=== PATIENT | male | born 1985 | race Caucasian/White ===

== ENCOUNTER 2024-11-27 22:09 | Inpatient (IN) ==
[2024-11-27] MEDS: SODIUM CHLORIDE 0.9% 1,000 ML IV STA (22:27)
--- NOTE | 2024-11-27 22:31 | Emergency Department Note ---
Impression & Plan Abdominal pain, Acute appendicitis ED Provider Note CHIEF COMPLAINT: RLQ abdominal pain HISTORY OF PRESENT ILLNESS: This 39 year old male patient presents to the emergency department via private vehicle for evaluation of right lower quadrant abdominal pain. This came on suddenly about 3-1/2 hours ago. The patient states that he has never had pain like this before. He was at work when the pain started. His appetite has been normal. No associated nausea or vomiting. No diarrhea or constipation. Last bowel movement was yesterday and was normal. No fever or chills. No dysuria, urinary frequency, urinary hesitancy. The pain does not radiate into the testicles or groin. Patient did not take any medication for his pain. History provided by: Patient REVIEW OF SYSTEMS: A 10 system review of systems was performed with positives and pertinent negatives listed in the history of present illness. All other systems were reviewed and are negative. ALLERGIES: NKDA PHYSICAL EXAM: VITALS: Vitals are noted on the nurse's note and reviewed by myself. GENERAL: This is a 39-year-old male, in no acute distress, nondiaphoretic, well- developed well-nourished. SKIN: The skin was without rashes, erythema, edema, or bruising. There is no tenting of the skin. Capillary refill less than 2 seconds. HEAD: Normocephalic atraumatic. EYES: Conjunctivae without injection, sclerae without icterus. MOUTH: Mucous membranes moist. NECK: Supple without nuchal rigidity. No JVD. HEART: Regular rate and rhythm without murmurs gallops or rubs. LUNGS: Clear to auscultation bilaterally without wheezes, rales or rhonchi. No retractions or accessory muscle use. ABDOMEN: Positive bowel sounds x 4. Right lower quadrant tenderness palpation. Abdomen is otherwise soft, without masses or organomegaly. Patrick sign negative. No guarding or rebound tenderness. Right CVA tenderness. MUSCULOSKELETAL: No muscle atrophy, erythema, or edema noted. Full range of motion without joint tenderness in all extremities. No tenderness to palpation. Normal gait. Strength 5/5 throughout. NEURO: Patient was alert and oriented to person place and time. Normal sensation to light and sharp touch. Deep tendon reflexes 2+ throughout. No focal neurological deficits. 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 The monitor showed a normal sinus rhythm at a ventricular rate of 93 bpm, per my interpretation. Imaging as interpreted by myself and the radiologist revealed early acute appendicitis, with radiologist interpretation as above. I agree with the radiologist's findings as based upon my independent interpretation. EMERGENCY DEPARTMENT COURSE: The patient was evaluated as above. Pt. presents to the ED today for RLQ pain. Pain came on suddenly about 3 hours ago. IV access obtained, labs drawn. Pt. hydrated with IV fluids, medicated with IV Toradol. Labs reviewed. Per my interpretations, no leukocytosis, anemia, thrombocytopenia. Renal, hepatic function and electrolytes without significant abnormality. Lipase normal. UA without evidence of blood or infection. CT imaging completed and concerning for early acute appendicitis, per my interpretation. Radiologist interpretation consistent with this. I discussed the case with Pepito Unger PA-C with general surgery. He did evaluate the patient. Please see general surgery dictation regarding ongoing management and final disposition of this patient. Case was discussed with the attending physician. I attest that I have personally reviewed the patient medication list. I attest that I have reviewed the patient's blood pressure and it was found to be normal GCS: 15 In the evaluation and treatment of this patient the following differential diagnoses were entertained: appendicitis, diverticulitis, obstruction, inflammatory bowel disease, renal colic, PUD, biliary pathology, pancreatitis, mesenteric ischemia, aortic pathology, infections, genitourinary, UTI, perforated viscus, as well as others were entertained. The chart was completed utilizing [employer] Speech voice recognition software. Grammatical errors, random word insertions, pronoun errors, and incomplete sentences are an occasional consequence of this system due to software limitations, ambient noise, and hardware issues. Any formal questions or concerns about the content, text, or information contained within the body of this dictation should be directly addressed to the provider for clarification. Past Med/Surg History Problem List (Updated 11/28/24 @ 02:43 by Lilibeth Rangel PA-C) Acute appendicitis (Acute) Abdominal pain (Acute) Appendicitis Medical History No chronic diseases present Surgical History History of ankle surgery L ankle (age 17) Family History Father Hypertension Mother No problems noted. 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 Required: No Beliefs That Will Affect Care: None marital status: Single Current Living Situation: Family Current Living Situation Comment: LIVES W/MOM current occupational status: employed current occupation: [employer] How many Children do You have: 0 Feels Safe at Home: Yes Childhood Exposure to Second-Hand Smoke: No Diet: regular caffeine: No during the past year weight has: remained stable Physical Activity Frequency: 5-6 Times per Week Physical Activity Frequency Comment: AT WORK Seatbelt Use: sometimes Sunscreen Use: No Assistive Devices: Glasses Allergies Allergies Allergy/AdvReac Type Severity Reaction Status Date / Time No Known Allergies Allergy Unverified 11/27/24 23:17 Home Meds Home Medications Medication Instructions Recorded Confirmed No Known Home Medications 11/27/24 11/27/24 Results & Data (ED) Vital Signs Vital Signs - 24 hr 11/27/24 22:17 11/27/24 22:27 11/27/24 23:03 Temperature 36.9 C Temperature Source Temporal Artery Scan Pulse Rate 93 H 77 Pulse Rate [Right Finger] 59 L Pulse Rhythm [Right Finger] Regular Respiratory Rate 18 16 Respiratory Effort / Characteristics Non-Labored Spontaneous Respiratory Depth Normal Normal Respiratory Pattern Regular Blood Pressure 116/72 Blood Pressure [Right Arm] 121/80 Blood Pressure Mean 86 Blood Pressure Mean [Right Arm] 93 Pulse Oximetry 99 100 Oxygen Delivery Method Room Air Room Air Sepsis Recent Fever Within 48 Hours No Sepsis New/Unexplained Change in Mental Status N/A Sepsis Action Taken by Nursing No Action Required 11/27/24 23:05 Temperature Temperature Source Pulse Rate 68 Pulse Rate [Right Finger] Pulse Rhythm [Right Finger] Respiratory Rate 16 Respiratory Effort / Characteristics Respiratory Depth Respiratory Pattern Blood Pressure Blood Pressure [Right Arm] Blood Pressure Mean Blood Pressure Mean [Right Arm] Pulse Oximetry 100 Oxygen Delivery Method Room Air Sepsis Recent Fever Within 48 Hours Sepsis New/Unexplained Change in Mental Status Sepsis Action Taken by Nursing Laboratory Data 11/27/24 22:29 11/27/24 22:29 Lab Results 11/27/24 11/28/24 Range/Units 22:29 00:28 WBC 10.58 (4.8-10.8) K/ul RBC 5.23 (4.70-6.10) M/uL Hgb 16.2 (14.0-18.0) g/dl Hct 46.9 (42.0-52.0) % MCV 89.7 (80.0-100.0) fL MCH 31.0 (25.0-34.0) pg MCHC 34.5 (32.0-36.0) g/dL RDW Std Deviation 42.8 (36.4-46.3) fL RDW Coeff of Appi 13.1 (11.5-14.5) % Plt Count 229 (130-400) K/uL MPV 10.9 (9.4-12.4) fL Immature Gran % (Auto) 0.4 % Neut % (Auto) 79.6 % Lymph % (Auto) 12.0 % Mckean % (Auto) 6.9 % Eos % (Auto) 0.8 % Baso % (Auto) 0.3 % Neut # (Auto) 8.43 H (1.40-6.50) K/uL Lymph # (Auto) 1.27 (1.20-3.40) K/uL Mckean # (Auto) 0.73 H (0.11-0.59) K/uL Eos # (Auto) 0.08 (0.00-0.50) K/uL Baso # (Auto) 0.03 (0.00-0.20) K/uL Immature Gran # (Auto) 0.04 (0.01-0.20) K/uL PT 10.4 (9.0-12.0) Seconds INR 1.0 (0.9-1.1) APTT 27 (21-31) Seconds PTT Ratio 1.0 Sodium 140 (136-145) mmol/L Potassium 4.3 (3.5-5.1) mmol/L Chloride 106 (98-107) mmol/L Carbon Dioxide 28 (21-32) mmol/L Anion Gap 6 (3-11) BUN 12 (6-23) mg/dl Creatinine 1.02 (0.6-1.4) mg/dl Est Cr Clr Drug Dosing 90.9 ml/min eGFR 95.88 BUN/Creatinine Ratio 11.8 (10-20) Glucose 100 H (70-99(Fasting)) mg/dl Calcium 9.3 (8.6-10.3) mg/dl Total Bilirubin 0.5 (0.2-1.0) mg/dl AST 25 (13-39) U/L ALT 23 (7-52) U/L Alkaline Phosphatase 90 (34-104) U/L Total Protein 7.5 (6.0-8.3) gm/dl Albumin 4.9 (3.4-5.0) gm/dl Globulin 2.6 (2.5-4.0) gm/dl Albumin/Globulin Ratio 1.9 (0.9-2) Lipase 23 (11-82) U/L Urine Color Yellow Urine Appearance Clear (Clear) Urine pH 5.5 (4.5-7.5) Ur Specific Premium 1.022 (1.000-1.030) Urine Protein Negative (Negative) Urine Glucose (UA) Negative (Negative) Urine Ketones 1+ H (Negative) Urine Blood Negative (Negative) Urine Nitrite Negative (Negative) Urine Bilirubin Negative (Negative) Urine Urobilinogen Negative (Negative) Ur Leukocyte Esterase Negative (Negative) Urine Comment Administered Medications Sodium Chloride (Nss) 1,000 mls @ 125 mls/hr IV .Q8H SHAHEEN Stop: 12/01/24 00:59 Last Admin: 11/28/24 01:16 Dose: 125 mls/hr Documented By: HAMLET Discontinued Medications Sodium Chloride (Nss) 1,000 mls @ 999 mls/hr IV .Q1H1M STA Stop: 11/27/24 23:25 Last Infusion: 11/27/24 23:29 Dose: Infused Documented By: Admin: 11/27/24 22:27 Dose: 999 mls/hr Documented By: JR Piperacillin Sod/Tazobactam Sod (Zosyn) 4.5 gm in 100 mls @ 200 mls/hr IV NOW ONE; Protocol Stop: 11/28/24 01:21 Last Infusion: 11/28/24 02:26 Dose: Infused Documented By: Admin: 11/28/24 01:19 Dose: 200 mls/hr Documented By: NEK Ketorolac Tromethamine (Ketorolac Tromethamine 15 Mg/Ml Vial) 30 mg IV NOW STA Stop: 11/27/24 22:26 Last Admin: 11/27/24 22:59 Dose: 30 mg Documented By: RENETTA Ondansetron HCl (Ondansetron Inj 2 Mg/Ml 2 Ml Vial) 4 mg IV NOW STA Stop: 11/27/24 22:26 Last Admin: 11/27/24 22:59 Dose: 4 mg Documented By: RENETTA Imaging Data Radiologist's Impression: Abdomen/Pelvis CT 11/27/24 22:25 CR Exam(s): CT ABDOMEN + PELVIS Without Contrast EXAM: CT Abdomen and Pelvis Without Intravenous Contrast CLINICAL HISTORY: Reason for exam: right flank, sudden RLQ pain. TECHNIQUE: Axial computed tomography images of the abdomen and pelvis without intravenous contrast. CTDI is 16.44 mGy and DLP is 908.56 mGy-cm. Automated exposure control was utilized for the study. A dose lowering technique was utilized adhering to the principles of ALARA. COMPARISON: No relevant prior studies available. FINDINGS: The exam is limited due to lack of contrast. Lung bases: No consolidation. ABDOMEN: Liver: The liver is enlarged. Gallbladder and bile ducts: No calcified stones. No ductal dilation. Pancreas: The visualized portions of the pancreas, on this noncontrast study, are grossly unremarkable.. Spleen: No splenomegaly. Adrenals: No mass. Kidneys and ureters: No obstructing stones. No hydronephrosis. Stomach and bowel: There is some air and fluid within the stomach. There is air and stool noted in the colon.. PELVIS: Appendix: The appendix is mildly distended at 10 mm. There are some mild surrounding inflammatory changes.. Bladder: No calculi are noted within the bladder.. Reproductive: Unremarkable as visualized. ABDOMEN and PELVIS: Intraperitoneal space: No free air. No significant fluid collection. Bones/joints: No acute fracture. No dislocation. Soft tissues: Unremarkable. Vasculature: No abdominal aortic aneurysm. Lymph nodes: No enlarged lymph nodes. IMPRESSION: The appendix is mildly distended with some mild surrounding inflammatory changes. This may represent early or mild appendicitis.. Communications: Call Doctor Appendicitis Electronically signed by: Sebastián Ewing MD 11/28/24 00:26 AM Discharge Plan Visit Data Chief Complaint: Flank Pain Stated Complaint: LOWER RT FLANK PAIN ED Provider: Chris Cole ED Midlevel Provider: Lilibeth Rangel Discharge Problem: Abdominal pain, Acute appendicitis Patient Disposition: Admitted As Inpatient Condition: Good Discharge Instructions Interventions: ED Discharge Assessment Last Done: 11/28/24 01:52
[2024-11-27 22:54] LABS: Hematocrit (blood only) 46.9 % (42.0-52.0); Hemoglobin 16.2 g/dl (14.0-18.0); Immature Granulocytes # (auto) 0.04 K/uL (0.01-0.20); Immature Granulocytes % (auto) 0.4 %; Mean Corpuscular Hemoglobin 31.0 pg (25.0-34.0); Mean Corpuscular Volume 89.7 fL (80.0-100.0); Platelet Count 229 K/uL (130-400); RDW Standard Deviation 42.8 fL (36.4-46.3); Red Blood Count 5.23 M/uL (4.70-6.10); White Blood Count 10.58 K/ul (4.8-10.8)
[2024-11-27] MEDS: KETOROLAC TROMETHAMINE 15 MG/ML VIAL IV STA (22:59)
[2024-11-27] MEDS: ONDANSETRON INJ 2 MG/ML 2 ML VIAL IV STA (22:59)
[2024-11-27 23:11] LABS: Alanine Aminotransferase 23.0 U/L (7-52); Albumin Globulin Ratio 1.9 (0.9-2); Alkaline Phosphatase 90.0 U/L (34-104); Anion Gap 6.0 (3-11); Bilirubin,Total 0.5 mg/dl (0.2-1.0); Blood Urea Nitrogen 12.0 mg/dl (6-23); Calcium 9.3 mg/dl (8.6-10.3); Carbon Dioxide 28.0 mmol/L (21-32); Chloride 106.0 mmol/L (98-107); Creatinine Clr Calc Pharmacy 90.9 ml/min; Globulin 2.6 gm/dl (2.5-4.0); Glucose 100.0 mg/dl (70-99(Fasting)); Lipase 23.0 U/L (11-82); Potassium 4.3 mmol/L (3.5-5.1); Sodium 140.0 mmol/L (136-145); Total Protein 7.5 gm/dl (6.0-8.3)
--- NOTE | 2024-11-28 00:27 | CT Scan Report ---
Exam(s): CT ABDOMEN + PELVIS Without Contrast EXAM: CT Abdomen and Pelvis Without Intravenous Contrast CLINICAL HISTORY: Reason for exam: right flank, sudden RLQ pain. TECHNIQUE: Axial computed tomography images of the abdomen and pelvis without intravenous contrast. CTDI is 16.44 mGy and DLP is 908.56 mGy-cm. Automated exposure control was utilized for the study. A dose lowering technique was utilized adhering to the principles of ALARA. COMPARISON: No relevant prior studies available. FINDINGS: The exam is limited due to lack of contrast. Lung bases: No consolidation. ABDOMEN: Liver: The liver is enlarged. Gallbladder and bile ducts: No calcified stones. No ductal dilation. Pancreas: The visualized portions of the pancreas, on this noncontrast study, are grossly unremarkable.. Spleen: No splenomegaly. Adrenals: No mass. Kidneys and ureters: No obstructing stones. No hydronephrosis. Stomach and bowel: There is some air and fluid within the stomach. There is air and stool noted in the colon.. PELVIS: Appendix: The appendix is mildly distended at 10 mm. There are some mild surrounding inflammatory changes.. Bladder: No calculi are noted within the bladder.. Reproductive: Unremarkable as visualized. ABDOMEN and PELVIS: Intraperitoneal space: No free air. No significant fluid collection. Bones/joints: No acute fracture. No dislocation. Soft tissues: Unremarkable. Vasculature: No abdominal aortic aneurysm. Lymph nodes: No enlarged lymph nodes. IMPRESSION: The appendix is mildly distended with some mild surrounding inflammatory changes. This may represent early or mild appendicitis.. Communications: Call Doctor Appendicitis Electronically signed by: Sebastián Ewing MD 11/28/24 00:26 AM
[2024-11-28 00:40] LABS: Appearance Urine Clear (Clear); Glucose Urine UA Negative (Negative)
--- NOTE | 2024-11-28 00:47 | History & Physical Report ---
Date of Service November 28, 2024 Assessment & Plan (1) Appendicitis: Plan: Due to the patient's findings on CT scan as well as his clinical presentation he will be admitted to the surgical service proceeding as follows: N.p.o. status will be implemented Will initiate antibiotics in the form of Zosyn Will hydrate with IV fluids Analgesics will be provided Antiemetics will be provided Will add coagulation studies to his current labs Will tentatively have the patient undergo an appendectomy with Dr. Boykin about any tissue for general surgery the morning of 11/28/2024. Will use SCDs for DVT prevention, no chemical needs due to planned surgery Additional recommendations to be forthcoming based on operative findings and his postoperative recovery thereafter History of Present Illness Chief Complaint: Abdominal pain Primary Care Provider: Karen Aleman DO This is a 39-year-old male that presented to the emergency department secondary to abdominal pain. 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 He says that the pain does not radiate anywhere and he does not report any other modifying factors. He has not had any fevers, shakes, or chills. He denies any nausea or vomiting. He denies any history of prior abdominal surgeries. Since arrival to hospital the patient has had labs and imaging which I independent reviewed. He did have a CT scan of the abdomen and pelvis that sh owed no free intraperitoneal fluid or any free intraperitoneal air. The appendix was noted to be mildly distended 10 mm with some mild surrounding inflammatory changes and the interpreting radiologist felt that this potentially represented an early/mild appendicitis. Labs included a CBC were white blood cell count, hemoglobin, hematocrit, and platelet count were normal. Chemistry profile showed sodium and potassium as well as the BUN and creatinine were normal. There is no elevation of LFTs or lipase and a urinalysis was not taken of infection. At the time of my interview he was resting comfortably in bed he was in no distress. Concerning allergies the patient says he has no medicine allergies Concerning medications he denies taking any medications Concerning past medical history he denies any medical problems Concerning past surgical history he has had surgery on his ankle but denies any other prior surgeries Concerns social history he does vape. Concerning family history he notes his father suffered from hypertension Allergies Allergy/AdvReac Type Severity Reaction Status Date / Time No Known Allergies Allergy Verified 11/28/24 08:36 Home Medications Medication Instructions Recorded Confirmed Type No Known Home Medications 11/27/24 11/27/24 History Past Med/Surg History Problem List Acute appendicitis (Acute) Abdominal pain (Acute) Appendicitis Medical History No chronic diseases present Surgical History History of ankle surgery L ankle (age 17) Family History Father Hypertension Mother No problems noted. Denies family history of Ovarian cancer Prostate cancer Myocardial infarction Breast cancer Colorectal cancer Social History Smoking Status: Current every day smoker Tobacco Type: E-cigarettes / Vaping Age Started Using Tobacco: 14; Age Quit Using Tobacco: 32; packs per day: 0.5; Second Hand Exposure: No; Do You Dip or Chew Tobacco: No; Tobacco Cessation Education Requested by Patient: No Hx Alcohol Use: Yes Alcohol type: beer Alcohol Intake Frequency: 2-3 x/Week Hx Substance Use: No Preferred Language: [place] Communication Ability: Effective Visual Impairment: Partially Limited Hearing Ability: Normal 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 current occupational status: employed current occupation: [employer] How many Children do You have: 0 Other Information That Helps Us Care for You: No Feels Safe at Home: Yes Safety Concerns: Feels Safe At This Time Childhood Exposure to Second-Hand Smoke: No Diet: regular caffeine: No during the past year weight has: remained stable Physical Activity Frequency: 5-6 Times per Week Physical Activity Frequency Comment: AT WORK Seatbelt Use: sometimes Sunscreen Use: No Assistive Devices: None Review of Systems Review of Systems: All systems reviewed & are unremarkable except as noted in HPI & below Physical Exam Constitutional: WD/WN, vitals as above Eyes: no conjunctival abnormality ENMT: Ears: no hearing impairment and no external ear abnormality Neck: trachea midline Respiratory: normal respiratory effort; no respiratory distress and no labored breathing Cardiovascular: Rate/Rhythm: regular rate and regular rhythm Gastrointestinal (Abdomen): Abdomen is soft without rigidity or distention. There is no rebound tenderness, guarding, or signs of peritonitis. Patient did have pain with palpation in the right lower quadrant over McBurney's point Musculoskeletal: No calf tenderness Skin: no rashes Neurologic: moves all extremities Psychiatric: A+Ox3, euthymic affect Results & Data Results & Data Vital Signs (Past 12 Hours) Vital Signs Temp Pulse Pulse Resp BP BP Pulse Ox 11/27/24 23:05 68 16 100 11/27/24 23:03 59 L 16 121/80 100 11/27/24 22:27 77 11/27/24 22:17 36.9 C 93 H 18 116/72 99 O2 Del Method 11/27/24 23:05 Room Air 11/27/24 23:03 Room Air 11/27/24 22:27 11/27/24 22:17 Room Air Supervising Physician Co-Signing Physician Notes Patient seen and examined, labs and imaging reviewed, agree with above. Presented with abdominal pain overnight. On exam he is afebrile with stable vitals, abdomen is soft, tender to palpation in the right lower quadrant over McBurney's point with localized guarding. WBC normal. CT scan personally reviewed and agree with the assessment of an early acute appendicitis without evidence of perforation. Plan for laparoscopic appendectomy Risks of procedure were discussed to include but not limited to bleeding, infection, normal appendix, conversion open, damage surrounding structures, need for future more extensive surgery, abscess, and the risk of anesthesia Likely discharge this afternoon Wound care instructions activity restrictions reviewed Return precautions given Follow-up in general surgery clinic in 2 weeks, call with questions or concerns PG Care Time/CCT Total # of Minutes Spent Total Time Spent with Patient: Total time spent is greater than 50% in coordination of care (as documented) at patient's floor/unit and/or counseling patient: Coding Level of Care Code 96425 INT INP/OBS CARE 3/75MIN Diagnoses Appendicitis K37
[2024-11-28] MEDS ORDERED: MoRPHine SULFATE 4 MG/ML 1 ML CARP\\VIAL IV PRN (00:52)
[2024-11-28] MEDS ORDERED: ONDANSETRON INJ 2 MG/ML 2 ML VIAL IV PRN ×2 (00:52→09:05)
[2024-11-28] MEDS ORDERED: ACETAMINOPHEN 1,000 MG/100 ML VIAL IV PRN (00:52)
[2024-11-28] MEDS: SODIUM CHLORIDE 0.9% 1,000 ML IV SCH (01:16)
[2024-11-28] MEDS: PIPERACILLIN/TAZOBACTAM 4.5 GM/100 ML BAG IV ONE (01:19)
[2024-11-28 01:39] LABS: INR 1.0 (0.9-1.1); Partial Thromboplastin Time 27 Seconds (21-31); Prothrombin Time 10.4 Seconds (9.0-12.0)
[2024-11-28] MEDS: PIPERACILLIN/TAZOBACTAM 4.5 GM/100 ML BAG IV SCH (05:43)
[2024-11-28] MEDS: BUPIVACAINE 0.5 % 5 MG/1 ML MPF 30ML VIAL ONE (08:03)
[2024-11-28] MEDS ORDERED: DEXAMETHASONE SOD INJ 4 MG/ML VIAL ONE (08:19)
[2024-11-28] MEDS ORDERED: ONDANSETRON INJ 2 MG/ML 2 ML VIAL ONE (08:19)
[2024-11-28] MEDS ORDERED: LIDOCAINE 2% 2 ML VIAL/AMP(20MG/ML) INFIL ONE (08:19)
[2024-11-28] MEDS ORDERED: MIDAZOLAM HCL 1 MG/ML 2ML VIAL ONE (08:19)
[2024-11-28] MEDS ORDERED: ROCURONIUM BROMIDE 10 MG/ML 5 ML VIAL IV ONE (08:19)
[2024-11-28] MEDS ORDERED: PROPOFOL IV EMULSION 10 MG/ML 20 ML VIAL IV ONE (08:19)
--- NOTE | 2024-11-28 08:47 | Anesthesiology Consultation ---
Date of Service November 28, 2024 Assessment & Plan Chart Review Chart Review: Acceptable Risk for Surgery and Patient NOT seen in Pre Admission Testing Consults Requested none ASA ASA2 Proposed Anesthesia Anesthesia Type: General Risk / Benefits Reviewed With: PT / POA / Parent / Guardian, Accepts Plan and Informed Consent Obtained History Surgery Operation Date: 11/28/24 08:55 Proposed Procedures p Laparoscopic Appendectomy - Facundo Boykin, DO, FACS Height/Weight Height: 5 ft 7 in Weight: 85.304 kg Allergies Allergy/AdvReac Type Severity Reaction Status Date / Time No Known Allergies Allergy Verified 11/28/24 08:36 Medications Home Medications Medication Instructions Recorded Confirmed Last Taken No Known Home Medications 11/27/24 11/27/24 Unknown Active Medications Generic Name Dose Route Start Last Admin Trade Name Freq PRN Reason Stop Dose Admin Sodium Chloride 1,000 mls @ 125 mls/hr 11/28/24 01:00 11/28/24 01:16 Nss IV 12/01/24 00:59 125 mls/hr .Q8H SHAHEEN Administration Piperacillin Sod/Tazobactam Sod 4.5 gm in 100 mls @ 25 mls/hr 11/28/24 06:00 11/28/24 05:43 Zosyn IV 12/08/24 01:51 25 mls/hr Q8H SHAHEEN Administration Protocol NPO Date Last Intake of Fluids: 11/27/24 Time Last Intake of Fluids: 23:00 Date Last Intake of Solids: 11/26/24 Time Last Intake of Solids: 03:00 Past Medical History Medical History No chronic diseases present Gerd Vapes HLD Exercise / Class Metabolic Activity II 4-5 Yardwork/Stairs/Walk up hill Past Family History Family History Father Hypertension Mother No problems noted. Denies family history of Ovarian cancer Prostate cancer Myocardial infarction Breast cancer Colorectal cancer Past Surgical History Surgical History History of ankle surgery L ankle (age 17) Past Anesthesia History No Hx of Anesthesia Complications and No Family Hx of Anesthesia Complications History of PONV No Hx of PONV and No Hx of Motion Sickness Social History Smoking Status: Current every day smoker Do You Dip or Chew Tobacco: No Hx Alcohol Use: Yes Alcohol type: beer alcohol intake frequency: 0-2 drinks per day Hx Substance Use: No substance use type: does not use Physical Exam Vital Signs Last Vital Signs Temp 36.6 C 11/28/24 08:27 Pulse 69 11/28/24 08:27 Resp 20 11/28/24 08:27 BP 134/82 11/28/24 08:27 Pulse Ox 97 11/28/24 08:27 O2 Del Method Room Air 11/28/24 08:27 Constitutional + obese; no acute distress ENMT Mouth: + dentition abnormality, + dental caries, + poor dentition, + chipped teeth and + loose teeth Thyromental Distance: > or= 3.5 Finger Breadths Mallampati Class: II Neck normal visual inspection, trachea midline and + facial hair; neck extension not limited Respiratory normal respiratory effort Auscultation: lungs clear to auscultation bilaterally Cardiovascular Rate/Rhythm: regular rate and regular rhythm Heart Sounds: no murmur Vessels: no carotid bruit Musculoskeletal Spine: normal cervical ROM and no pain with cervical ROM Extremities: extremities normal to inspection; full ROM of extremities Neurologic moves all extremities Motor/Sensory: no sensory deficit Psychiatric Orientation: alert and oriented x 3 Testing Laboratory Results 11/27/24 22:29 11/27/24 22:29 PT 10.4 Seconds (9.0-12.0) 11/27/24 22:29 INR 1.0 (0.9-1.1) 11/27/24 22:29 APTT 27 Seconds (21-31) 11/27/24 22:29 Urine Color Yellow 11/28/24 00:28 Urine Appearance Clear (Clear) 11/28/24 00:28 Urine pH 5.5 (4.5-7.5) 11/28/24 00:28 Ur Specific [place] 1.022 (1.000-1.030) 11/28/24 00:28 Urine Protein Negative (Negative) 11/28/24 00:28 Urine Glucose (UA) Negative (Negative) 11/28/24 00:28 Urine Ketones 1+ (Negative) H 11/28/24 00:28 Urine Nitrite Negative (Negative) 11/28/24 00:28 Ur Leukocyte Esterase Negative (Negative) 11/28/24 00:28
[2024-11-28] MEDS ORDERED: NALOXONE HCL 0.4 MG/1 ML VIAL/CARP IV PRN (09:05)
[2024-11-28] MEDS ORDERED: ATROPINE SULFATE 0.1 MG/ML 10ML SYR IV PRN (09:05)
[2024-11-28] MEDS ORDERED: FLUMAZENIL 0.1 MG/1 ML 10 ML VIAL IV PRN (09:05)
[2024-11-28] MEDS ORDERED: PROMETHAZINE HCL 6.25 MG in SODIUM CHLORIDE 0.9% 50 ML IV PRN (09:05)
[2024-11-28] MEDS ORDERED: HYDROmorphone INJ 1 MG/ML SYRINGE IV PRN (09:05)
--- NOTE | 2024-11-28 09:48 | History & Physical Bridge Note ---
Date of Service November 28, 2024 History & Physical Bridge Note I have examined the patient, reviewed the History & Physical and in the interval since the performance of the History & Physical I have noted the following changes of clinical significance: no changes noted
[2024-11-28] MEDS ORDERED: SUGAMMADEX SODIUM 200 MG/2 ML VIAL IV ONE (10:37)
--- NOTE | 2024-11-28 10:49 | Operative Report ---
PG Post Operative Report Pre & Post Diagnosis Operation Date: 11/28/24 08:55 Pre-Op Diagnosis: Appendicitis Post-Op Diagnosis: Appendicitis I identified the patient and participated in the time-out.: Yes Procedure Operation Date: 11/28/24 08:55 Actual Procedures p Laparoscopic Appendectomy(Not Applicable) - Facundo Boykin DO, MALISSA Surgeon Facundo Boykin DO, MALISSA Capacity Planning Analyst Solo Duran Estimated Blood Loss 5 Findings Consistent with Post-Op Diagnosis Acute, nonperforated appendicitis Specimens Appendix Anesthesia Type General Complications none Disposition Accompanied Patient To Recovery: No Disposition: Recovery Room Indications 39-year-old male presented with signs symptoms of acute appendicitis confirmed by CT scan. Plan for laparoscopic appendectomy. The risks of the procedure were discussed, all questions were answered, and the patient agreed to proceed with surgery as planned. Description of Procedure The patient was properly identified, consented, and taken to the operating room where he was placed in the supine position. General endotracheal anesthesia was induced. SCDs and a safety belt were placed. Preoperative antibiotics were administered. A Cooper catheter was not placed. The patient's abdomen was prepped and draped in the standard sterile fashion. Surgical timeout was performed and all parties were in agreement that this was the correct patient and procedure to be performed and we continued as planned. An incision was made superior into the left of the umbilicus. The Veress needle was inserted and saline drop test confirmed entry into the abdomen. The abdomen is insufflated with carbon dioxide with the patient tolerated without incident. The abdomen was then entered using a 5 mm 30 degree scope and a 5 mm port utilizing the Optiview technique. The laparoscope was inserted and no damage from initial trocar placement was noted, no gross abnormalities were noted within the 4 quadrants the abdomen. 12 mm port was placed in the left lower quadrant with care not to damage the epigastric vessels, and a 5 mm port was placed in the suprapubic midline with care not to damage the bladder. The patient was placed in Trendelenburg position and rotated towards the left. The small bowel was swept away from the right lower quadrant. The cecum was grasped with an atraumatic grasper exposing the appendix. The appendix was moderately inflamed and there was no evidence of perforation. There was no fluid in the pelvis. A window was created between the base of the appendix and the mesoappendix. A evans loaded endoscopic stapler was then used to divide the appendix at its base. A evans load was then used to divide the mesoappendix. Hemostasis was good. The appendix was placed in an Endo Catch bag and removed through the umbilical port site. The right lower quadrant and pelvis was irrigated and hemostasis was found to be good. 5 mm trochars were removed under direct visualization and the abdomen was allowed to collapse. The 12 mm port port site fascia was closed with [id number] 0 Vicryl suture utilizing the Bam-Latrice device. The wound was irrigated, and the skin of all ports was closed with 4-0 Monocryl subcuticular sutures. Dermabond was placed over the wounds. The patient was extubated in the operating room and taken to the PACU where he recovered without apparent incident. All sponge, instrument and needle counts were correct at the conclusion of the procedure. The patient tolerated the procedure well. The physicians contact center assistant was present and scrubbed for the entire the case. She was critical in positioning the patient, prepping and draping, retraction exposure, driving the laparoscope, removal of the appendix, closure the inci sions, placement of the dressings. I attest to the content of the Intraoperative Record and any orders documented therein. Any exceptions are noted below.
[2024-11-28] MEDS ORDERED: KETOROLAC 30 MG/ML VIAL ONE (10:52)
[2024-11-28 11:13] VITALS: TEMP 97.5
[2024-11-28 11:26] VITALS: RESP 16
[2024-11-28 11:36] VITALS: BP 120/81; PULSE 68; O2SAT 98
--- NOTE | 2024-11-28 12:09 | Anesthesiology Progress Note ---
Date of Service November 28, 2024 Anesthesia Post Procedure Vital Signs Vital Signs: Temp Pulse Pulse Pulse Resp BP BP 11/28/24 11:35 36.4 C L 68 16 120/81 11/28/24 11:25 77 16 118/72 11/28/24 11:15 80 18 120/72 11/28/24 11:05 36.4 C L 77 20 124/81 11/28/24 08:27 36.6 C 69 20 11/28/24 07:28 36.8 C 81 18 11/28/24 05:25 36.5 C 63 18 11/28/24 05:12 55 L 16 106/62 11/28/24 05:00 51 L 16 11/28/24 03:10 57 L 16 11/28/24 01:00 70 18 11/27/24 23:05 68 16 11/27/24 23:03 59 L 16 11/27/24 22:27 77 11/27/24 22:17 36.9 C 93 H 18 116/72 BP Pulse Ox O2 Del Method O2 Flow Rate 11/28/24 11:35 98 Room Air 11/28/24 11:25 99 Room Air 11/28/24 11:15 100 Oxymask 5 11/28/24 11:05 100 Oxymask 5 11/28/24 08:27 134/82 97 Room Air 11/28/24 07:28 112/71 97 Room Air 11/28/24 05:25 108/67 98 Room Air 11/28/24 05:12 99 Room Air 11/28/24 05:00 106/62 99 Room Air 11/28/24 03:10 106/65 97 Room Air 11/28/24 01:00 113/64 95 Room Air 11/27/24 23:05 100 Room Air 11/27/24 23:03 121/80 100 Room Air 11/27/24 22:27 11/27/24 22:17 99 Room Air Pain Intensity Left Lower Abdomen: Pain Intensity: 6 Right Lower Abdomen: Pain Intensity: 4 Transfer of Care Handoff Completed per policy Notes Mental Status: alert / awake / arousable Patient Amnestic to Procedure: Yes Nausea / Vomiting: adequately controlled Pain: adequately controlled Airway Patency, RR, SpO2: stable & adequate BP & HR: stable & adequate Hydration State: stable & adequate Anesthetic Complications: no major complications apparent
--- NOTE | 2024-11-29 13:35 | Discharge Summary ---
Date of Service November 28, 2024 Admission HPI Per Admitting Provider This is a 39-year-old male that presented to the emergency department secondary to abdominal pain. 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 He says that the pain does not radiate anywhere and he does not report any other modifying factors. He has not had any fevers, shakes, or chills. He denies any nausea or vomiting. He denies any history of prior abdominal surgeries. Since arrival to hospital the patient has had labs and imaging which I independent reviewed. He did have a CT scan of the abdomen and pelvis that showed no free intraperitoneal fluid or any free intraperitoneal air. The appendix was noted to be mildly distended 10 mm with some mild surrounding inflammatory changes and the interpreting radiologist felt that this potentially represented an early/mild appendicitis. Labs included a CBC were white blood cell count, hemoglobin, hematocrit, and platelet count were normal. Chemistry profile showed sodium and potassium as well as the BUN and creatinine were normal. There is no elevation of LFTs or lipase and a urinalysis was not taken of infection. At the time of my interview he was resting comfortably in bed he was in no distress. Concerning allergies the patient says he has no medicine allergies Concerning medications he denies taking any medications Concerning past medical history he denies any medical problems Concerning past surgical history he has had surgery on his ankle but denies any other prior surgeries Concerns social history he does vape. Concerning family history he notes his father suffered from hypertension Admission Exam Per Admitting Provider Physical Exam Constitutional: WD/WN, vitals as above Eyes: no conjunctival abnormality ENMT: Ears: no hearing impairment and no external ear abnormality Neck: trachea midline Respiratory: normal respiratory effort; no respiratory distress and no labored breathing Cardiovascular: Rate/Rhythm: regular rate and regular rhythm Gastrointestinal (Abdomen): Abdomen is soft without rigidity or distention. There is no rebound tenderness, guarding, or signs of peritonitis. Patient did have pain with palpation in the right lower quadrant over McBurney's point Musculoskeletal: No calf tenderness Skin: no rashes Neurologic: moves all extremities Psychiatric: A+Ox3, euthymic affect Principal Diagnosis Acute Appendicitis Discharge Exam Constitutional WD/WN, vitals as above Respiratory normal respiratory effort, lungs clear to auscultation Cardiovascular RRR, no murmur, no edema Gastrointestinal (Abdomen) Abdomen soft, nondistended, +appropriate TTP over surgical sites. Incisions with Dermabond in place, c/d/i without any overlying sings of infection Skin no rashes, warm and dry Discharge Data Allergies Allergy/AdvReac Type Severity Reaction Status Date / Time No Known Allergies Allergy Verified 11/28/24 08:36 Consultations 11/28/24 00:58 ED Decision to Admit Stat Procedures Performed Operation Date: 11/28/24 08:55 Actual Procedures p Laparoscopic Appendectomy(Not Applicable) - Facundo Boykin DO, FACS Ordered Studies 11/27/24 22:25 CT abd pelvis wo con Stat Hospital Course (1) Acute appendicitis: In summary, the patient was admitted to the surgical service for findings of acute appendicitis on CT imaging. He was made n.p.o. and was given IV antibiotic coverage preoperatively. The patient proceeded to the operating theater and underwent a laparoscopic appendectomy. No intraoperative complications were noted (please see separate operative note for full surgical details). Postoperatively, the patient was extubated and returned to medical surgical floor. He was able to tolerate p.o. intake without any issues of worsening abdominal pain, nausea or vomiting. His pain was well-controlled. He was able to void without any issues. Was ultimately found stable to be discharged later that same day. The patient did not require any additional antibiotic coverage at time of discharge. The patient was given postoperative instructions which included no heavy lifting for 4 weeks, pain control as needed, and he will follow-up in our outpatient clinic in approximately 2 weeks for his postoperative checkup. Total Time Total Time Spent Total Time Spent (In Minutes): > 30 minutes Discharge Plan Discharge Items Patient Disposition: Home - Self-Care Reason For Visit: APPY Discharge Diagnosis: Acute appendicitis Condition on Discharge: Good Activity: Per Instructions section Bathing Comment: You may shower on 11/29. No bath tubs, hot tubs, pools, or beaches x2 weeks Non-emergency contact: Primary Care Provider and Surgeon Call non-emergency contact if: your pain is not controlled, your temperature is above 101, your wound has increased redness and your wound has increased drainage Follow-up/Referrals: Karen Aleman DO [Primary Care Provider] - Facundo Boykin DO, FACS [Physician] - 12/12/24 11:15 am (follow up in 2 weeks for your post-operative check up ) Diet: Regular Addtl Attending Provider Instructions: SPECIAL CARE INSTRUCTIONS: * You have skin glue over your incisions called Dermabond. You may shower with this on, do NOT pick at it as it will tend to fall off on it's own within the next 7-10 days. * You may shower n 11/29/2024 . NO soaking in bath tubs, hot tubs, beaches, or pools for 2 weeks * No lifting greater than 10lbs. No exercise until cleared by surgeon. Light walking is accepted. * No driving while taking narcotic pain medication * No drinking alcohol while taking narcotic pain medication * May use Ibuprofen/Tylenol over the counter for pain as tolerated. Do not exceed 3grams of Tylenol per 24 hours * Expect some swelling and bruising. * Diet - resume your regular diet CALL YOUR DOCTOR IF: * Temperature above 101 degrees, nausea/vomiting, fever/chills * Pain not relieved by pain medicine ordered * There is increased drainage or redness from any incision * You have any unanswered questions or concerns [phone]. FOLLOW UP VISIT: If not already scheduled, please call the office for a follow-up visit. Office Pending Studies at Discharge: Yes Studies:: surgical pathology Stand-Alone Forms: My [facility], Work/School Release, Smoking Cessation Medications and DC Order Prescriptions: New oxycodone 5 mg tablet 5 mg PO Q6H PRN (Reason: pain) Qty: 12 0RF Rx Instructions: Initial therapy post surgery Discharge Orders: Discharge Order (Routine); Ordered 11/28/24 Ordered By: Solo Trevino/Other Patient Handouts: Appendectomy, Surgery for Appendicitis Admission Data Admit Date/Time: 11/28/24 00:55 Attending Provider: Facundo Boykin Admit Provider: Facundo Boykin Primary Care Provider: Karen Aleman Other Interventions: Discharge Summary Assessment (RN) Last Done: 11/28/24 11:56 [place] [address] INP/OBS DISCH >30 MIN Patient Type Established History Problem Focused Exam Problem Focused Medical Decision Making Straight Forward Diagnoses Acute appendicitis K35.80
== END 2024-11-28 12:24 | disposition home or self-care (01) | DRG 399 ==
LOC: ED 22:09 → EDINP 11-28 00:55 → 3E 11-28 05:12